=== PATIENT | female | born 1985 | race Two or more races ===

== ENCOUNTER 2023-11-22 23:03 | Emergency (ER) | payer MEDICAID, OTHER ==
[~2023-11-22] VITALS: Ht 153 cm; Wt 59.1 kg
[2023-11-22 23:16] VITALS: TEMP 98.1
[2023-11-22] MEDS: SODIUM CHLORIDE 0.9% 1,000 ML IV ONE (23:25)
[2023-11-22] MEDS: ONDANSETRON HCL 4 MG/2 ML VIAL IVP ONE (23:25)
[2023-11-22] MEDS: MORPHINE SULFATE 4 MG/ML SYRINGE IVP ONE (23:26)
[2023-11-22] MEDS ORDERED: SODIUM CHLORIDE 0.9% 100 ML ONE (23:26)
[2023-11-22] MEDS ORDERED: IOHEXOL 350 MG/ML 100 ML VIAL ONE (23:27)
[2023-11-22] MEDS: IOHEXOL 9 MG/ML 500 ML BOTTLE PO ONE (23:28)
[2023-11-22 23:32] LABS: BASOPHILS % (AUTO) 0.3 % (0.0-2.0); EOSINOPHILS % (AUTO) 2.4 % (1.0-6.0); HEMATOCRIT 36.8 % (36-46); LYMPHOCYTES # (AUTO) 2.1 K/uL (1.0-4.8); LYMPHOCYTES % (AUTO) 22.1 % (22.0-44.0); MEAN CORPUSCULAR HEMOGLOBIN 31.3 pg (26.0-34.0); MEAN CORPUSCULAR HGB CONC 35.3 G/dL (31.0-37.0); MEAN CORPUSCULAR VOLUME 89 fL (80-100); MONOCYTES # (AUTO) 0.8 K/uL (0.1-1.0); MONOCYTES % (AUTO) 8.3 % (2.0-9.0); NEUTROPHILS # (AUTO) 6.4 K/uL (1.8-7.7); NEUTROPHILS % (AUTO) 66.9 % (40.0-70.0); PLATELET COUNT (AUTO) 224 K/uL (150-450); RED BLOOD CELL COUNT(AUTO) 4.14 MIL/uL (4.00-5.20); RED CELL DISTRIBUTION WIDTH 12.5 % (11.5-14.5); WHITE BLOOD COUNT (AUTO) 9.5 K/uL (4.5-11.0)
[2023-11-22 23:43] LABS: ANION GAP 10 mmol/L (8-16); CARBON DIOXIDE 26 mmol/L (22-29); CHLORIDE 100 mmol/L (98-107); CREATININE 0.75 mg/dL (0.60-1.30); GLOMERULAR FILTR. RATE CALC > 60 mL/min (>60); GLUCOSE,RANDOM 120 mg/dL (70-110); POTASSIUM 3.5 mmol/L (3.5-5.1); SODIUM SERUM 136 mmol/L (136-145); UREA NITROGEN, BLOOD 14 mg/dL (7-18)
[2023-11-22 23:46] LABS: ALANINE AMINOTRANSFERASE 68 U/L (12-78); ALKALINE PHOSPHATASE 73 U/L (46-116); ASPARTATE AMINOTRANSFERASE 39 U/L (15-37); BILIRUBIN,TOTAL 0.4 mg/dL (0.1-1.0); LIPASE 37 U/L (16-77); TOTAL PROTEIN, SERUM 7.3 g/dL (6.4-8.2)
[2023-11-23 00:54] LABS: APPEARANCE,URINE CLEAR (CLEAR); BILIRUBIN,URINE NEGATIVE (NEGATIVE); COLOR,URINE COLORLESS (YELLOW); GLUCOSE, URINE (UA) NEGATIVE (NEGATIVE); KETONES,URINE NEGATIVE (NEGATIVE); LEUKOCYTE ESTERASE ,URINE NEGATIVE (NEGATIVE); NITRATE,URINE NEGATIVE (NEGATIVE); OCCULT BLOOD,URINE NEGATIVE (NEGATIVE); PH,URINE 6.5 (5.0-8.0); PROTEIN,URINE NEGATIVE (NEGATIVE); SPECIFIC GRAVITIY, URINE 1.008 (1.003-1.030); UROBILINOGEN,URINE <=1.0 mg/dL (<=1.0)
[2023-11-23 00:56] LABS: BACTERIA,URINE None Seen /HPF (None Seen); RBC,URINE None Seen /HPF (0-2); SQUAMOUS EPITHELIAL CELL,UR None Seen /LPF (None Seen); WBC,URINE None Seen /HPF (0-5)
[2023-11-23] MEDS: HYDROmorphone HCL 2 MG/ML SYRINGE IVP ONE (04:32)
[2023-11-23] MEDS: ONDANSETRON HCL 4 MG/2 ML VIAL IVP ONE (05:17)
[2023-11-23] MEDS: SODIUM CHLORIDE 0.9% 1,000 ML IV ONE (11:47)
[2023-11-23 14:00] VITALS: BP 110/68; PULSE 70; RESP 14
[2023-11-23] MEDS ORDERED: POLY17PO11 PO (14:05)
== END 2023-11-23 15:11 | disposition home or self-care (01) ==
LOC: EMS 23:03
DX: N83.8 Other noninflammatory disorders of ovary, fallopian tube and broad ligament (principal)
CPT/HCPCS: 99285; 96374; 96375; 96361; 80053; 81001; 83690; 85025; 36415; 74177; 76856; 96376; J2270; J2405 ×2; Q9967; J7030; J7050; J1170